=== PATIENT | male | born 1965 | race Caucasian/White ===

== ENCOUNTER 2021-11-02 09:07 | Emergency (ER) | payer SELFPAY ==
[~2021-11-02] VITALS: Ht 177.8 cm; Wt 109.1 kg
[2021-11-02] MEDS ORDERED: MORPHINE SULFATE 4 MG/ML INJ. IVP ONE (09:45)
[2021-11-02 10:02] LABS: BASO % 0 % (0-3); EOS # 0.1 x10^3/uL (0.0-0.7); EOS % 1 % (0-3); HEMOGLOBIN 12.7 g/dL (13.0-17.5); LYMPH # 0.8 x10^3/uL (1.0-4.8); LYMPH % 7 % (24-48); MEAN CORPUSCULAR HEMOGLOBIN 30 pg (25-35); MEAN CORPUSCULAR HGB CONC 33 g/dL (31-37); MEAN CORPUSCULAR VOLUME 93 fL (79-100); MONO # 1.1 x10^3/uL (0.0-1.1); MONO % 9 % (0-9); NEUT # 10.2 x10^3/uL (1.8-7.7); NEUT % 83 % (31-73); PLATELET COUNT 209 x10^3/uL (140-400); RED BLOOD COUNT 4.17 x10^6/uL (4.30-5.70); RED CELL DISTRIBUTION WIDTH 14.5 % (11.5-14.5); WHITE BLOOD COUNT 12.3 x10^3/uL (4.0-11.0)
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
[2021-11-02 10:09] LABS: CALCIUM 7.9 mg/dL (8.5-10.1); CREATININE 0.7 mg/dL (0.7-1.3); GFR 116.7; POTASSIUM 4.3 mmol/L (3.5-5.1)
[2021-11-02 10:15] LABS: ALBUMIN 1.9 g/dL (3.4-5.0); ALBUMIN/GLOBULIN RATIO 0.4 (1.0-1.7); MAGNESIUM 1.8 mg/dL (1.8-2.4); PHOSPHORUS 2.4 mg/dL (2.6-4.7); TOTAL BILIRUBIN 1.9 mg/dL (0.2-1.0); TOTAL PROTEIN 6.6 g/dL (6.4-8.2)
[2021-11-02] MEDS ORDERED: IOHEXOL 300 MG/ML 100ML VIAL. IV ONE (10:30)
[2021-11-02] MEDS ORDERED: CONTRAST GIVEN. MC PRN (10:30)
--- NOTE | 2021-11-02 10:47 | RAD ---
EXAMINATION: XR CHEST 1V CLINICAL HISTORY: Shortness of breath. EXAM DATE/TIME: 11/02/2021 10:37 AM COMPARISON: None FINDINGS: Lines, Tubes, and Devices: None. Cardiomediastinal Silhouette: Prominent cardiac silhouette, likely accentuated by low lung volumes an d AP portable technique. Lungs and Pleura: Pulmonary hypoexpansion with bibasilar opacities, greater on the left. Diffuse inte rstitial opacities and bilateral hilar fullness. No definite pleural effusion. Bones and Soft Tissues: Degenerative changes in the thoracic spine. IMPRESSION: Pulmonary hypoexpansion with findings suspicious for pulmonary edema, superimposed infectious process not excluded. Correlate with pending CTA chest/abdomen/pelvis. Electronically signed by: Nate Blakely DO (11/02/2021 10:45 AM) [id number]
--- NOTE | 2021-11-02 11:35 | RAD ---
US TESTICULAR History: Reason: testicular pain, swelling, erythema / Spl. Instructions: / History: Comparison: CT November 02, 2021 Technique: Multiple grayscale, color flow Doppler and Doppler spectral analysis images of the scrotum are obtained. Findings: Right testicle measures 4.3 x 2.6 x 1.4 cm. Right testicle demonstrates normal parenchymal echogenic ity. Right epididymis is unremarkable. Left testicle measures 4.1 x 2.6 x 1.7 cm. Left testicle demonstrates normal parenchymal echogenici ty. Left epididymis is unremarkable. Small right hydrocele. No varicocele. Large right inguinal hernia containing fluid. Doppler imaging demonstrates normal flow to both testicles, without evidence of torsion. IMPRESSION: 1. Large right inguinal hernia containing fluid. Electronically signed by: Fred Fu DO (11/02/2021 11:33 AM) [id number]
--- NOTE | 2021-11-02 12:05 | RAD ---
PQRS Compliance Statement: One or more of the following individualized dose reduction techniques were utilized for this examinat ion: 1. Automated exposure control 2. Adjustment of the mA and/or kV according to patient size 3. Use of iterative reconstruction technique CT CHEST+ABD+PELVIS W Clinical Indication: Reason: SOB, orthopnea, umbilical hernia w distention, testicular pain swelling Comparison: None. Technique: Helical CT imaging of the abdomen and pelvis is performed after 75 cc of Omnipaque 300 IV contrast. Oral contrast not administered. Findings: There are several subcentimeter mediastinal lymph nodes. Great vessels are normal caliber. Small calc ified bilateral hilar lymph nodes. Coronary artery disease. Cardiac size upper limits of normal. No p ericardial effusion. No pleural abnormality. The central airways are patent. There is mild consolidation with air bronchog yany in the posterior right lower lobe. There is consolidation with air bronchograms in the basilar l eft lower lobe and the inferior lingula. There is hepatic cirrhosis with sequela of portal hypertension. There are small esophageal varices. T here is splenomegaly. There is moderate abdominal and pelvic ascites. No gallbladder wall thickening. The pancreas and adrenal glands are normal. The abdominal aorta caliber is normal. There is no hydro nephrosis. The stomach is unremarkable. There is a small fat-containing umbilical hernia. There is no dilated sm all bowel. There is wall thickening of the ascending colon. The appendix is not identified, no second ronny signs of appendicitis. No other colon wall thickening is identified. There is anasarca. The urinary bladder is mostly decompressed. There is a large right inguinal hernia that contains fluid. Degenerative spondylosis of the thoracolumbar spine. IMPRESSION: 1. Hepatic cirrhosis with sequela of portal hypertension including small esophageal varices and sple nomegaly. 2. There is wall thickening of the ascending colon. Considerations include portal hypertensive colop athy versus infectious or inflammatory colitis. 3. There is moderate abdominal and pelvic ascites. 4. There are consolidations with air bronchograms in the bilateral lung bases, worse on the left. Co nsiderations include pneumonia, aspiration if there is such a history, or atelectasis. 5. There is a large right inguinal hernia containing fluid. 6. Anasarca. Electronically signed by: Paolo Andrade MD (11/02/2021 11:57 AM) [id number]
[2021-11-02 13:12] LABS: PROTHROMBIN TIME PATIENT 17.9 SEC (11.7-14.0)
--- NOTE | 2021-11-02 17:25 | EKG ---
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
[2021-11-02 17:49] LABS: BACTERIA,URINE 0 /HPF (0-FEW); WBC,URINE 0 /HPF (0-4)
[2021-11-02] MEDS ORDERED: PROPRANOLOL 40 MG TABLET. PO ONE (19:00)
[2021-11-02 19:24] VITALS: BP 175/101
== END 2021-11-02 19:40 | disposition short-term general hospital (02) ==
LOC: ER 09:07
DX: K76.6 Portal hypertension (principal); I85.10 Secondary esophageal varices without bleeding; K74.60 Unspecified cirrhosis of liver; J96.01 Acute respiratory failure with hypoxia; K42.9 Umbilical hernia without obstruction or gangrene; K40.90 Unilateral inguinal hernia, without obstruction or gangrene, not specified as recurrent; E11.9 Type 2 diabetes mellitus without complications; Z87.891 Personal history of nicotine dependence
CPT/HCPCS: 36415; 71045; 71260; 74177; 76870; 80053; 81001; 83735; 84100; 85025; 85610; 85730; 93005; 96374; 99285; J2270; Q9967